=== PATIENT | male | born 2000 | race Caucasian/White ===

== ENCOUNTER 2022-03-26 01:41 | Emergency (ER) | payer OTHER ==
[~2022-03-26] VITALS: Ht 167.6 cm; Wt 80.9 kg
[2022-03-26 01:42] VITALS: TEMP 97.7
[2022-03-26 05:55] VITALS: BP 97/47; PULSE 95
== END 2022-03-26 05:59 | disposition home or self-care (01) ==
LOC: COL.ER 01:41
DX: F10.129 Alcohol abuse with intoxication, unspecified (principal)